=== PATIENT | male | born 1950 | race Two or more races ===

== ENCOUNTER 2021-03-24 15:41 | Emergency (ER) | payer OTHER ==
[~2021-03-24] VITALS: Ht 180.3 cm; Wt 59.0 kg
== END 2021-03-24 23:06 | disposition home or self-care (01) ==
LOC: ER 15:41
DX: K40.90 Unilateral inguinal hernia, without obstruction or gangrene, not specified as recurrent (principal); Z03.818 Encounter for observation for suspected exposure to other biological agents ruled out

== ENCOUNTER 2021-03-29 15:12 | Inpatient (IN) | payer OTHER ==
[~2021-03-29] VITALS: Ht 180.3 cm; Wt 59.0 kg
[2021-04-14] MEDS ORDERED: PROTONIX IV40 MG IV (10:05)
[2021-04-14] MEDS ORDERED: INTEGRA CAPSUL1 EACH PO (10:06)
[2021-04-14] MEDS ORDERED: CARAFATE1 GM PO (10:06)
== END 2021-04-14 14:34 | disposition home or self-care (01) | DRG 384 ==
LOC: ER 15:12 → MEDJ 21:31
PROVIDERS: ADMIT Internal Medicine; ATTEND Internal Medicine
PROC: 30233N1 Transfusion of Nonautologous Red Blood Cells into Peripheral Vein, Percutaneous Approach (ICD-10-PCS; 2021-03-30)
PROC: 0DB78ZX Excision of Stomach, Pylorus, Via Natural or Artificial Opening Endoscopic, Diagnostic (ICD-10-PCS; principal; 2021-04-01)
PROC: 0DB68ZX Excision of Stomach, Via Natural or Artificial Opening Endoscopic, Diagnostic (ICD-10-PCS; 2021-04-12)
DX: K25.9 Gastric ulcer, unspecified as acute or chronic, without hemorrhage or perforation (principal); E46 Unspecified protein-calorie malnutrition; D50.9 Iron deficiency anemia, unspecified; Z20.822 Contact with and (suspected) exposure to COVID-19; K40.90 Unilateral inguinal hernia, without obstruction or gangrene, not specified as recurrent

== ENCOUNTER → 2021-06-17 14:33 | Outpatient (CLI) | payer OTHER ==
[~2021-06-17 14:33] MED LIST: AMLODIPINE-OLM1 EACH PO; CARAFATE1 GM PO; INTEGRA CAPSUL1 EACH PO; NEURONTIN600 M1 PO; PERCOCET 5-3251 EACH PO; POLY119PG PO; PROTONIX IV40 MG IV
== END | disposition home or self-care (01) ==
LOC: LAB 14:33
PROVIDERS: ATTEND Radiology Diagnostic Radiology
DX: C18.8 Malignant neoplasm of overlapping sites of colon (principal)

== ENCOUNTER 2021-06-21 09:40 | Outpatient (CLI) | payer OTHER ==
[~2021-06-21 09:40] MED LIST changes: -AMLODIPINE-OLM1 EACH PO; -NEURONTIN600 M1 PO; -PERCOCET 5-3251 EACH PO; -POLY119PG PO
[2021-07-20] MEDS ORDERED: AMLODIPINE-OLM1 EACH PO (12:15)
== END 2021-06-21 09:54 | disposition home or self-care (01) ==
LOC: TOM 09:40
DX: C16.8 Malignant neoplasm of overlapping sites of stomach (principal); K57.90 Diverticulosis of intestine, part unspecified, without perforation or abscess without bleeding
CPT/HCPCS: 74160; Q9965

== ENCOUNTER 2021-07-27 06:22 | Day surgery (SDC) | payer OTHER ==
[~2021-07-27 06:22] MED LIST changes: +AMLODIPINE-OLM1 EACH PO
[2021-07-27] MEDS ORDERED: NEURONTIN600 M1 PO (16:06)
[2021-07-27] MEDS ORDERED: PERCOCET 5-3251 EACH PO (16:06)
[2021-07-27] MEDS ORDERED: POLY119PG PO (16:07)
== END 2021-07-27 18:15 | disposition home or self-care (01) ==
LOC: CIR.AMB 06:22
PROVIDERS: ATTEND Surgery
DX: K40.20 Bilateral inguinal hernia, without obstruction or gangrene, not specified as recurrent (principal); Z20.822 Contact with and (suspected) exposure to COVID-19